=== PATIENT | male | born 1995 | race Two or more races ===

== ENCOUNTER 2019-09-05 23:21 | Emergency (ER) | payer SELFPAY ==
[~2019-09-05] VITALS: Ht 175.3 cm; Wt 113.4 kg
[2019-09-05 23:39] VITALS: BP 154/96
== END 2019-09-05 23:44 | disposition left against medical advice (07) ==
LOC: ER 23:23
DX: R06.02 Shortness of breath (principal); M25.512 Pain in left shoulder; Z53.21 Procedure and treatment not carried out due to patient leaving prior to being seen by health care provider
CPT/HCPCS: 93005